=== PATIENT | male | born 1960 | race Caucasian/White ===

== ENCOUNTER → 2020-05-01 08:36 | Outpatient (BNVA) | payer OTHER, SELFPAY | PROVIDERS: Visit Provider Anesthesiology ==

== ENCOUNTER → 2020-05-29 08:29 | Outpatient (BNVA) | payer OTHER, SELFPAY | PROVIDERS: Visit Provider Anesthesiology ==

== ENCOUNTER 2020-06-05 08:31 | Outpatient (REF) | payer OTHER, SELFPAY ==
--- NOTE | ~2020-06-05 | MR_ITS ---
MR CERVICAL SPINE WITHOUT CONTRAST CLINICAL INFORMATION: Postlaminectomy syndrome. COMPARISON: None available. TECHNIQUE: MRI of the cervical spine was obtained using routine sequences without contrast. FINDINGS: Postoperative changes following ACDF and laminectomy spanning the C5-C7 levels. There is mild retrosubluxation of C4 on C5. Cervical alignment is otherwise maintained. The vertebral body heights are preserved. There is moderate disc volume loss at C4-C5. There is no bone marrow edema. There are no acute fractures. The partially imaged posterior fossa is unremarkable. The cervical arterial flow voids are maintained. There are no significant soft tissue findings. C2-C3: Shallow central disc protrusion without central canal stenosis. Advanced left facet arthropathy. No significant foraminal stenosis. C3-C4: Small annular disc bulge and bilateral facet arthropathy. No central canal stenosis. No significant foraminal stenosis. C4-C5: Mild retrosubluxation. Disc osteophyte mildly narrows the central canal. Uncovertebral joint spurring and facet arthropathy result in severe right and moderate to severe left foraminal stenosis. C5-C6: There are postoperative changes following ACDF and laminectomy. Osteophytic ridging without central canal stenosis. Osteophytic ridging results in mild bilateral foraminal encroachment. C6-C7: ACDF and laminectomy changes. Osteophytic ridging without central canal stenosis. There is no foraminal stenosis. C7-T1: Uncovertebral joint spurring and facet arthropathy result in mild to moderate bilateral foraminal stenosis. There is no central canal stenosis. MR/MR cervical spine wo con IMPRESSION: - At the junctional C4-C5 level, mild retrosubluxation and multifactorial degenerative changes result in severe right and moderate to severe left foraminal stenosis. - Postoperative changes following ACDF and laminectomy spanning the C5-C7 levels. There is no central canal stenosis at the postoperative levels.
== END 2020-06-05 08:32 | disposition home or self-care (01) ==
LOC: HO.MRI 08:31
PROVIDERS: Visit Provider Anesthesiology
DX: M96.1 Postlaminectomy syndrome, not elsewhere classified (principal); M50.30 Other cervical disc degeneration, unspecified cervical region
CPT/HCPCS: 72141

== ENCOUNTER → 2020-06-19 09:12 | Outpatient (BNVA) | payer OTHER, SELFPAY | PROVIDERS: Visit Provider Anesthesiology ==